=== PATIENT | male | born 1935 | race Caucasian/White ===

== ENCOUNTER 2021-04-15 13:15 | Inpatient (IN) ==
--- NOTE | 2021-04-15 13:35 | Emergency Department Note ---
Extremity Problem HPI General Chief complaint: Extremity Problem,Nontraumatic Stated complaint: bilateral feet swelling Time Seen by Provider: 04/15/21 13:21 Source: patient, family, RN notes reviewed and old records reviewed Mode of arrival: ambulatory Limitations: no limitations History of Present Illness HPI Narrative: Narrative: 85-year-old male complains of severe bilateral foot pain x1 day. Patient has a history of neuropathy and use ice bags and baths to diminish the pain in his feet so he can sleep. Patient feels he may have overdone it because his feet have now blisters erythema and increased swelling and pain. MD Complaint: extremity pain and extremity swelling Onset (ago): day(s) (1) Consistency: constant Location: left, right and lower extremity Quality: stabbing and aching Radiation: none Improves with: elevation Worsens with: walking Associated symptoms: Reports rash; Denies chest pain, shortness of breath, feve r, myalgias and arthralgias Context: other (Ice packs) Related Data Home Medications Medication Instructions Recorded Confirmed thyroid (pork) [[place] Thyroid] 60 mg PO DAILY 08/16/16 08/16/16 albuterol sulfate 90 mcg/actuation 2 puff INHALATION .COMPLEX PRN 08/24/17 08/24/17 aerosol inhaler cholecalciferol (vitamin D3) 125 See Rx Instructions PO .COMPLEX 08/24/17 08/24/17 mcg (5,000 unit) tablet desonide 0.05 % topical ointment 1 applic TOPICAL BID 08/24/17 08/24/17 diclofenac sodium 1 % topical gel See Rx Instructions TOPICAL QID PRN 08/24/17 08/24/17 ibuprofen 200 mg capsule 200 mg PO TID cap 08/24/17 08/24/17 krill oil PO 08/24/17 08/24/17 levofloxacin 500 mg tablet 500 mg PO QDAY tab 08/24/17 08/24/17 magnesium oxide See Rx Instructions PO ONCE tab 08/24/17 08/24/17 multivitamin 1 tab PO QDAY 08/24/17 08/24/17 omeprazole 20 mg capsule,delayed 20 mg PO QDAY 08/24/17 08/24/17 release sumatriptan succinate 100 mg tablet 100 mg PO ONCE 08/24/17 08/24/17 topiramate 25 mg tablet 25 mg PO QHS tab 08/24/17 08/24/17 visine pure tears See Rx Instructions OPHTHALMIC 08/24/17 08/24/17 .COMPLEX vit C-vit [id number] capsule cap PO 08/24/17 08/24/17 Previous Rx's Medication Instructions Recorded hydrocodone-acetaminophen 1 tab PO Q4HP PRN #15 tab 08/16/16 methocarbamol 500 mg PO BIDP PRN #20 tab 08/16/16 testosterone cypionate 200 mg/mL 100 mg IM QWEEK #10 ml 08/13/20 intramuscular oil Allergies Allergy/AdvReac Type Severity Reaction Status Date / Time dexlansoprazole Allergy Unknown Unknown Verified 04/15/21 13:18 [From Dexilant] morphine Allergy Unknown Unknown Verified 04/15/21 13:18 Penicillins Allergy Unknown Unknown Verified 04/15/21 13:18 Sulfa (Sulfonamide Allergy Unknown Unknown Verified 04/15/21 13:18 Antibiotics) Review of Systems ROS ROS Narrative: Narrative: All systems ED: reviewed and negative except as stated. PFS Narrative Patient History Narrative: Narrative: Medical/Surgical/Family History All Active Problems (Updated 04/15/21 @ 14:02 by Dayne Branch MD) Cellulitis (Acute) Neuropathy (Acute) Obstructive uropathy (Chronic) Nausea (Chronic) Post-operative pain (Chronic) Edema (Chronic) Obstruction of urinary tract (Chronic) Rash (Chronic) Hypogonadism (Chronic) Prostatitis (Chronic) Diarrhea (Chronic) Cramp of limb (Chronic) Thrombocytopenia (Chronic) Temperature intolerance (Chronic) Reactive airway disease (Chronic) Pain in right shoulder (Chronic) Neck pain (Chronic) LBBB (left bundle branch block) (Chronic) Insomnia (Chronic) Inability to attain erection (Chronic) Hypothyroidism (Chronic) Hyperlipidemia (Chronic) Migraine headache (Chronic) GERD (gastroesophageal reflux disease) (Chronic) Hypertension, essential (Chronic) Encounter for monitoring long-term proton pump inhibitor therapy (Chronic) Long-term use of high-risk medication (Chronic) Dry eye syndrome (Chronic) Dermatitis (Chronic) Cough (Chronic) Acute bronchitis (Chronic) Constipation (Chronic) Dependent edema (Chronic) Pedal edema (Chronic) Spinal stenosis (Chronic) Urinary retention (Chronic) Lumbar spinal stenosis (Chronic) Medical History Acute bronchitis Constipation Cough Cramp of limb Dependent edema Dermatitis Diarrhea Dry eye syndrome Edema Encounter for monitoring long-term proton pump inhibitor therapy GERD (gastroesophageal reflux disease) Hyperlipidemia Hypertension, essential Hypogonadism Hypothyroidism Inability to attain erection Insomnia LBBB (left bundle branch block) Long-term use of high-risk medication Lumbar spinal stenosis Migraine headache Nausea Neck pain Obstruction of urinary tract Obstructive uropathy Pain in right shoulder Pedal edema bilateral Post-operative pain Prostatitis Rash Reactive airway disease Spinal stenosis lumbar region Temperature intolerance Thrombocytopenia Urinary retention Surgical History History of cataract surgery History of surgery vertebrae surgery Family History Unknown Parkinson's disease Social History Smoking Status: Never smoker Alcohol Intake Frequency: does not drink Exam Narrative Narrative: Narrative: General Limitations: no limitations General appearance: Present alert and in no apparent distress Head Head: Present atraumatic, normocephalic and normal inspection Eye Eye: Present normal appearance, PERRL and EOMI; Absent scleral icterus and conjunctival injection ENT ENT: Present normal exam, normal oropharynx and mucous membranes moist Neck Neck: Present normal inspection, full ROM and trachea midline; Absent tenderness, lymphadenopathy and thyromegaly Chest Chest: Present normal inspection and symmetric chest wall rise; Absent tenderness Respiratory Respiratory: Present normal lung sounds bilaterally; Absent respiratory distress, wheezes, stridor, accessory muscle use and prolonged expiratory phase Cardiovascular Cardiovascular: Present regular rate, normal rhythm and systolic murmur; Absent diastolic murmur Adbominal Abdominal: Present soft; Absent distention, tenderness, guarding, rebound, rigidity, organomegaly and mass Extremities Extremities: Present tenderness, pedal edema and other (Second-degree sierra to the left foot and marked erythema swelling and tenderness to palpation of bilateral feet.); Absent normal inspection, full ROM, normal capillary refill, pretibial edema and calf tenderness Back Back: Present normal inspection; Absent CVA tenderness (R), CVA tenderness (L) and spinous process tenderness Neurological Neurological: Present alert, oriented X3 and motor sensory deficit; Absent normal gait Psychiatric Psychiatric: Present normal affect and normal mood Skin Skin: Present hot and erythema; Absent dry and normal color Course Vital Signs Vital signs: Vital Signs Temperature 97.3 F 04/15/21 13:16 Pulse Rate 73 04/15/21 13:16 Respiratory Rate 16 04/15/21 13:16 Blood Pressure 170/76 04/15/21 13:16 Pulse Oximetry (%) 99 04/15/21 13:16 Temperature 97.3 F 04/15/21 13:16 Pulse Rate 73 04/15/21 13:16 Respiratory Rate 16 04/15/21 13:16 Blood Pressure 170/76 04/15/21 13:16 Pulse Oximetry (%) 99 04/15/21 13:16 MDM MDM Narrative Medical decision making narrative: Narrative: 85-year-old male with cellulitis to bilateral lower extremities. It appears to be second-degree sierra from a cold. With marked erythema the patient was treated with IV antibiotics wounds were cleaned and dressed and they are elevated. Patient will need to be admitted for IV antibiotics and further observation of wounds. Dr. Fatima day of wound care evaluated patient patient will be admitted to the hospitalist. Differential Diagnosis Differential Diagnosis: Cellulitis, osteomyelitis, gangrenous necrosis, secondary sierra from cold. Medical Records Medical records reviewed: Yes I reviewed the patient's medical records. Lab Data Lab results reviewed: Yes I reviewed the patient's lab results. Radiology Data Radiology results reviewed: Yes I reviewed the patient's radiology results. Radiology results narrative: CT scans of bilateral lower extremities are positive for marked cellulitis no osteomyelitis Pulse Oximetry Data Pulse Ox %: 100 Interpretation: Pulse ox 100% on room air within normal limits Discharge Plan Patient/Caregiver Discharge Instructions Pt seen by WINDOWS SYSTEMS ADMINISTRATOR/PA only: No Clinical Impression: Neuropathy Cellulitis Qualifiers: Site of cellulitis: extremity Site of cellulitis of extremity: lower extremity Laterality: unspecified laterality Qualified Code(s): L03.119 - Cellulitis of unspecified part of limb Patient Disposition: Xfer As Inpt ([facility]) Condition: Fair Follow up with: Robin Gutierrez MD [Primary Care Provider] - Prescriptions: No Action testosterone cypionate [Depo-Testosterone] 200 mg/mL oil 100 mg IM QWEEK Qty: 10 RF: 1 desonide 0.05 % ointment 1 applic TOPICAL BID RF: 0 diclofenac sodium 1 % gel See Rx Instructions TOPICAL QID PRNRF: 0 ibuprofen 200 mg capsule 200 mg PO TID RF: 0 krill oil PO RF: 0 levofloxacin 500 mg tablet 500 mg PO QDAY RF: 0 magnesium oxide 250 mg tablet See Rx Instructions PO ONCE RF: 0 multivitamin tablet 1 tab PO QDAY RF: 0 vit C-vit P-sfnnfg-atvhskhj capsule PO RF: 0 omeprazole 20 mg capsule,delayed release(DR/EC) 20 mg PO QDAY RF: 0 albuterol sulfate [ProAir HFA] 90 mcg/actuation HFA aerosol inhaler 2 puff INHALATION .COMPLEX PRNRF: 0 sumatriptan succinate 100 mg tablet 100 mg PO ONCE RF: 0 topiramate [Topamax] 25 mg tablet 25 mg PO QHS RF: 0 visine pure tears See Rx Instructions OPHTHALMIC .COMPLEX RF: 0 cholecalciferol (vitamin D3) 5,000 unit tablet See Rx Instructions PO .COMPLEX RF: 0 thyroid (pork) [[place] Thyroid] 60 MG Tablet 60 mg PO DAILY RF: 0 methocarbamol 500 MG Tablet 500 mg PO BIDP PRN (Reason: Spasms) Qty: 20 RF: 15 hydrocodone-acetaminophen 1 TAB Tablet 1 tab PO Q4HP PRN (Reason: Pain) Qty: 15 RF: 0
[2021-04-15] MEDS ORDERED: VANCOMYCIN 1,500 MG in 0.9 % SODIUM CHLORIDE 500 ML IV ONE (13:52)
[2021-04-15] MEDS ORDERED: fentaNYL 100 MCG/2 ML VIAL IV ONE (13:52)
[2021-04-15] MEDS ORDERED: DIPH,PERTUSS(ACELL),TET VAC/PF 0.5 ML SYRINGE IM ONE (13:52)
[2021-04-15] MEDS ORDERED: diphenhydrAMINE 50 MG/ML VIAL IV ONE (13:52)
[2021-04-15] MEDS ORDERED: ONDANSETRON 4 MG/2 ML VIAL IV ONE ×2 (13:52→15:56)
[2021-04-15] MEDS ORDERED: cefTRIAXone 2 GM in DEXTROSE 5% IN WATER 50 ML IV ONE (13:52)
[2021-04-15 14:13] LABS: POC Creatinine 1.2 mg/dL (0.6-1.2)
[2021-04-15 14:59] LABS: INR 1.1 (0.9-1.1); Prothrombin Time 14.7 sec (11.9-14.5)
[2021-04-15 15:02] LABS: Basophils # (Auto) 0.04 K/mcL (0.00-0.20); Basophils % (Auto) 0.8 % (0.0-2.0); Eosinophils # (Auto) 0.06 K/mcL (0.00-0.70); Eosinophils % (Auto) 1.2 % (0.0-7.0); Hematocrit 47.5 % (41.0-55.0); Hemoglobin 16.3 g/dL (13.5-16.5); Lymphocytes % (Auto) 11.7 % (15.0-49.0); Mean Cell Volume 85.7 fL (80.0-100.0); Mean Corpuscular HGB Conc 34.3 g/dL (31.0-36.0); Mean Platelet Volume 10.6 fL (7.4-10.4); Monocytes # (Auto) 0.35 K/mcL (0.10-0.90); Monocytes % (Auto) 6.8 % (1.0-12.0); Neutrophils % (Auto) 79.5 % (38.0-78.0); Platelet Count 122 K/mcL (140-440); RBC 5.54 M/mcL (4.50-5.90); Red Cell Distribution Width 14.3 % (11.5-14.5); WBC 5.1 K/mcL (4.5-11.0)
--- NOTE | 2021-04-15 15:19 | Cat Scan Report ---
CLINICAL INFORMATION: Foot cellulitis COMPARISON: None. TECHNIQUE: 0.625 mm helical slices were obtained through the distal one third of the tibia fibula through the ankle and foot. Following reconstruction, 2.5 mm sagittal, coronal and axial reformatted images were processed and reviewed in bone and soft tissue windows.The exam was performed using radiation dose optimization techniques including, but not limited to, automated exposure control, adjustment of the mA and/or kV according to patient size and use of iterative reconstruction technique. FINDINGS: Mild hallux valgus and metatarsus abductus deformities noted. Ossific naviculare also noted. No CT evidence for osteomyelitis. Joint spaces are normal in width and alignment without arthritic change. There is marked inflammation in the subcutaneous fat throughout the foot and ankle compatible with cellulitis. No evidence of discrete abscess. IMPRESSION: Severe cellulitis throughout the foot and ankle. No discrete soft tissue abscess or evidence of osteomyelitis. Mild hallux valgus and metatarsus abductus. Interpreted and Authenticated by: Chris Maravilla 04/15/21
[2021-04-15 15:26] LABS: ALT/SGPT 30 U/L (<40); AST/SGOT 25 U/L (<40); Albumin 4.2 gm/dL (3.2-5.2); Albumin/Globulin Ratio 2.5 (1.0-2.3); Alkaline Phosphatase 58 U/L (39-117); Bilirubin,Total 0.7 mg/dL (0.1-1.0); Blood Urea Nitrogen 11 mg/dL (8-23); Calcium 8.8 mg/dL (8.6-10.4); Carbon Dioxide 25 mmol/L (22-30); Chloride 90 mmol/L (96-108); Globulin 1.7 gm/dL (2.2-3.7); Glomerular Filtration Rate 78; Glucose 120 mg/dL (70-105)
--- NOTE | 2021-04-15 15:28 | Cat Scan Report ---
CLINICAL INFORMATION: Foot cellulitis COMPARISON: None. TECHNIQUE: 0.625 mm helical slices were obtained through the distal one third of the tibia fibula through the ankle and foot. Following reconstruction, 2.5 mm sagittal, coronal and axial reformatted images were processed and reviewed in bone and soft tissue windows.The exam was performed using radiation dose optimization techniques including, but not limited to, automated exposure control, adjustment of the mA and/or kV according to patient size and use of iterative reconstruction technique. FINDINGS: Mild hallux valgus and metatarsus abductus deformities noted. Ossific naviculare also noted. No CT evidence for osteomyelitis. Mild degeneration ankle mortise noted. Few small loose bodies present the ankle mortise. 1Joint spaces are normal in width and alignment without arthritic change. There is marked inflammation in the subcutaneous fat throughout the foot and ankle compatible with cellulitis. No evidence of discrete abscess. IMPRESSION: Severe cellulitis throughout the foot and ankle. No discrete soft tissue abscess or evidence of osteomyelitis. Mild hallux valgus, metatarsus abductus and hammertoe deformities second through fifth digits. Interpreted and Authenticated by: Chris Maravilla 04/15/21
[2021-04-15] MEDS ORDERED: FUROSEMIDE 20 MG/2 ML VIAL IV ONE (15:50)
[2021-04-15 15:51] LABS: Estimated Average Glucose(eAG) 103 mg/dL; Hemoglobin A1C 5.2 % Hgb (4.0-6.0)
[2021-04-15] MEDS ORDERED: fentaNYL 100 MCG/2 ML VIAL IV PRN (15:56)
[2021-04-15] MEDS ORDERED: LORazepam 2 MG/ML VIAL IV ONE (16:05)
[2021-04-15 16:19] LABS: Appearance,Urine CLEAR (Clear); Bilirubin,Urine Negative (Negative); Color,Urine STRAW; Culture Indicated,Urine No; Glucose,Urine (UA) Negative (Negative); Ketones,Urine Negative (Negative); Leukocyte Esterase,Urine Negative /ug (Negative); Nitrate,Urine Negative (Negative); Protein,Urine Negative (Negative); Specific Gravity,Urine 1.004 (1.000-1.035); Urine Blood Negative (Negative); Urobilinogen,Urine Negative
--- NOTE | 2021-04-15 19:20 | Internal Med History&Physical ---
HPI History of Present Illness Patient information: Note initiated : 04/15/21 at 7:13 pm Service Date, if different from initiated Date: [] Patient: Carlotta Fletcher 85 y/o M admitted on 04/15/21 for bilateral feet swelling. Chief Complaint: [] History of present illness: Mr. Fletcher is a 85 year old male with a history of extremity neuropathy, hypothyroidism, migraine headaches resents to the ED for lower extremity pain and redness that occurred after applying ice packs on both his lower extremities for neuropathy. Patient was found to have bilateral lower extremity frostbite, likely second-degree. Received some antibiotics in the ED, wound care was admitted for subsequent management. Further work-up in the ED showed the patient to be hyponatremic. Patient has been afebrile, has no leukocytosis. Procalcitonin was checked and normal. Discussed the case with condition Kamilla at the bedside, agreed to monitor off antibiotics. Will proceed with wound care for frostbite, pain control and monitoring improvement. Review of systems Constitutional: no fever, fatigue, or weight loss Eyes: no vision changes or pain Cardiovascular: no chest pain, no palpitations Respiratory: no cough or dyspnea Gastrointestinal: no abdominal pain, no nausea, vomiting, or diarrhea Genitourinary: no dysuria or difficulty voiding Musculoskeletal: Bilateral lower extremity pain frostbite, chronic back and neck pain Integumentary: Bilateral ankle and foot redness Neurological: Bilateral lower extremity neuropathy Psychiatric: no anxiety or depression Physical exam Head: Atraumatic, normal inspection. Eyes: normal appearance, no scleral icterus. Neck: full ROM Respiratory: no respiratory distress. Cardiovascular: normal rate and rhythm, S1, S2. GI/Abdominal: soft, nontender, no guarding. Extremities: full range of motion, nontender. Neurological: CN II-XII intact, intact motor, intact sensation to toes in bilateral lower extremities. Psychiatric: normal mood. Skin: Bilateral lower extremities covered in clean bandage, visible toes are reddened but appear well-perfused PFSH PFSH All Active Problems (Updated 04/15/21 @ 14:02 by Dayne Branch MD) Cellulitis (Acute) Neuropathy (Acute) Obstructive uropathy (Chronic) Nausea (Chronic) Post-operative pain (Chronic) Edema (Chronic) Obstruction of urinary tract (Chronic) Rash (Chronic) Hypogonadism (Chronic) Prostatitis (Chronic) Diarrhea (Chronic) Cramp of limb (Chronic) Thrombocytopenia (Chronic) Temperature intolerance (Chronic) Reactive airway disease (Chronic) Pain in right shoulder (Chronic) Neck pain (Chronic) LBBB (left bundle branch block) (Chronic) Insomnia (Chronic) Inability to attain erection (Chronic) Hypothyroidism (Chronic) Hyperlipidemia (Chronic) Migraine headache (Chronic) GERD (gastroesophageal reflux disease) (Chronic) Hypertension, essential (Chronic) Encounter for monitoring long-term proton pump inhibitor therapy (Chronic) Long-term use of high-risk medication (Chronic) Dry eye syndrome (Chronic) Dermatitis (Chronic) Cough (Chronic) Acute bronchitis (Chronic) Constipation (Chronic) Dependent edema (Chronic) Pedal edema (Chronic) Spinal stenosis (Chronic) Urinary retention (Chronic) Lumbar spinal stenosis (Chronic) Medical History Acute bronchitis Constipation Cough Cramp of limb Dependent edema Dermatitis Diarrhea Dry eye syndrome Edema Encounter for monitoring long-term proton pump inhibitor therapy GERD (gastroesophageal reflux disease) Hyperlipidemia Hypertension, essential Hypogonadism Hypothyroidism Inability to attain erection Insomnia LBBB (left bundle branch block) Long-term use of high-risk medication Lumbar spinal stenosis Migraine headache Nausea Neck pain Obstruction of urinary tract Obstructive uropathy Pain in right shoulder Pedal edema bilateral Post-operative pain Prostatitis Rash Reactive airway disease Spinal stenosis lumbar region Temperature intolerance Thrombocytopenia Urinary retention Surgical History History of cataract surgery History of surgery vertebrae surgery Family History Unknown Parkinson's disease Social History (Updated 08/24/17 @ 15:23 by Yokasta Toney) marital status: frequency: daily alcohol intake frequency: does not drink MEDS/ALLERGIES Home Medications and Allergies Home Medications Medication Instructions Recorded Confirmed Type thyroid (pork) [[place] Thyroid] 60 mg PO DAILY 08/16/16 04/15/21 History desonide 0.05 % topical ointment 1 applic TOPICAL BID 08/24/17 04/15/21 History sumatriptan succinate 100 mg tablet 100 mg PO PRN PRN 08/24/17 04/15/21 History testosterone cypionate 200 mg/mL 100 mg IM QWEEK #10 ml 08/13/20 04/15/21 Rx intramuscular oil colestipol 2 g PO QDAY 04/15/21 04/15/21 History gabapentin 100 mg PO QDAY 04/15/21 04/15/21 History Allergies Allergy/AdvReac Type Severity Reaction Status Date / Time dexlansoprazole Allergy Unknown Unknown Verified 04/15/21 13:18 [From Dexilant] morphine Allergy Unknown Unknown Verified 04/15/21 13:18 Penicillins Allergy Unknown Unknown Verified 04/15/21 13:18 Sulfa (Sulfonamide Allergy Unknown Unknown Verified 04/15/21 13:18 Antibiotics) EXAM Constitutional Vitals: Temp Pulse Resp BP Pulse Ox 97.3 F 68 16 104/51 96 04/15/21 13:16 04/15/21 17:31 04/15/21 13:16 04/15/21 17:31 04/15/21 17:31 DATA Data Completed and Pending Labs: Labs from last 24 hours 04/15/21 04/15/21 04/15/21 15:15 14:07 14:06 WBC 5.1 RBC 5.54 Hgb 16.3 Hct 47.5 MCV 85.7 MCH 29.4 MCHC 34.3 RDW 14.3 Plt Count 122 L MPV 10.6 H Neut % (Auto) 79.5 H Lymph % (Auto) 11.7 L Jackson % (Auto) 6.8 Eos % (Auto) 1.2 Baso % (Auto) 0.8 Lymph # (Auto) 0.60 L Jackson # (Auto) 0.35 Eos # (Auto) 0.06 Baso # (Auto) 0.04 Absolute Neutrophils 4.06 PT INR Sodium Potassium Chloride Carbon Dioxide Anion Gap BUN Creatinine POC Creatinine GFR Calculation Glucose Hemoglobin A1c Estim Average Glucose Calcium Total Bilirubin AST ALT Alkaline Phosphatase C-Reactive Protein Total Protein Albumin Globulin Albumin/Globulin Ratio Procalcitonin 0.06 Urine Color Straw Urine Appearance Clear Urine pH 7.0 Ur Specific Hope 1.004 Urine Protein Negative Urine Glucose (UA) Negative Urine Ketones Negative Urine Occult Blood Negative Urine Nitrate Negative Urine Bilirubin Negative Urine Urobilinogen Negative Ur Leukocyte Esterase Negative Ur Culture Indicated? No 04/15/21 04/15/21 14:06 14:06 WBC RBC Hgb Hct MCV MCH MCHC RDW Plt Count MPV Neut % (Auto) Lymph % (Auto) Jackson % (Auto) Eos % (Auto) Baso % (Auto) Lymph # (Auto) Jackson # (Auto) Eos # (Auto) Baso # (Auto) Absolute Neutrophils PT 14.7 H INR 1.1 Sodium 126 L Potassium 4.1 Chloride 90 L Carbon Dioxide 25 Anion Gap 11.0 BUN 11 Creatinine 0.9 POC Creatinine 1.2 GFR Calculation 78 Glucose 120 H Hemoglobin A1c 5.2 Estim Average Glucose 103 Calcium 8.8 Total Bilirubin 0.7 AST 25 ALT 30 Alkaline Phosphatase 58 C-Reactive Protein 0.10 Total Protein 5.9 Albumin 4.2 Globulin 1.7 L Albumin/Globulin Ratio 2.5 H Procalcitonin Urine Color Urine Appearance Urine pH Ur Specific Hope Urine Protein Urine Glucose (UA) Urine Ketones Urine Occult Blood Urine Nitrate Urine Bilirubin Urine Urobilinogen Ur Leukocyte Esterase Ur Culture Indicated? A/P Narrative A/P Narrative: Assessment: 85 year old male with a history of extremity neuropathy, hypothyroidism, migraine headaches admitted for bilateral lower extremity frostbite that occurred after applying ice packs on both his lower extremities for neuropathic pain. #Frostbite of bilateral lower extremities #Moderate hyponatremia, euvolemic and asymptomatic #Thrombocytopenia #Bilateral lower extremity neuropathy #Hypothyroidism #History of migraine headaches Plan -Wound care, analgesics as needed, follow frostbite progression. -Increase gabapentin to 300 mg twice daily. -Check TSH for poorly controlled neuropathy. -Follow sodium in AM, IV fluid and workup if no improvement. -Sumatriptan as needed for migraine. -Continue home [place] thyroid. -Dr. Farris consulted. -Regular diet. -DVT PPx: Lovenox SQ -CODE STATUS: Full -Disposition: Home Time Spent With Patient Time: Total time spent is greater than 50% in coordination of care (as documented) at patient's floor/unit and/or counseling patient:
[2021-04-15] MEDS ORDERED: HYDROmorphone 0.5 MG/0.5 ML SYRINGE IV PRN (19:23)
[2021-04-15] MEDS ORDERED: KETOROLAC 15 MG/ML VIAL IV PRN (19:23)
[2021-04-15] MEDS ORDERED: ONDANSETRON 4 MG/2 ML VIAL IV PRN (19:23)
[2021-04-15] MEDS ORDERED: SUMAtriptan SUCCINATE 50 MG TABLET PO PRN (19:32)
--- NOTE | 2021-04-15 19:36 | General Surgery Consult Note ---
HPI Data of Consult Consult date: 04/15/21 Requesting physician: Dayne Branch Primary Care Provider: Robin Gutierrez Consult Narrative Patient Information: Note initiated : 04/15/21 at 7:18 pm Service Date, if different from initiated Date: [] Patient: Carlotta Fletcher 85 y/o M admitted on 04/15/21 for bilateral feet swelling. Chief Complaint: I saw this patient in ER in the presence of his family and discussed his presentation and management plan with ER Physician Dr. Carranza. Reviewed history and examined patient. SUBSEQUENTLY I saw him on Med Surg Floor along with Dr. Buenrostro, Hospitalist Physician. Have reviewed lab results and CT Scan reports and pictures. Chief complaint: PAIN both feet, with Cellulits CSSSI both feet / blisters dorsal left foot Reason for consult: Wound / Skin care cc:: CC: Mando Buenrostro MD Constitutional Additional comments: Was in usual state of health until one day ago. He experienced an exacerbation of his neuropathic pain and burning involving both feet and ankles. He tried to treat this with ice packs. This did NOT help and over a period of time, he developed soft tissue edema, erythema and throbbing pain of both feet and blisters over LEFT dorsal foot. He is able to move toes and ankles. He has h/o Lumbar spinal stenosis and spinal surgery in past. He had similar episode over 3 years ago. Treated conservatively. He DENIES any urinary or bowel symptoms. PFSH PFSH All Active Problems Cellulitis (Acute) Neuropathy (Acute) Obstructive uropathy (Chronic) Nausea (Chronic) Post-operative pain (Chronic) Edema (Chronic) Obstruction of urinary tract (Chronic) Rash (Chronic) Hypogonadism (Chronic) Prostatitis (Chronic) Diarrhea (Chronic) Cramp of limb (Chronic) Thrombocytopenia (Chronic) Temperature intolerance (Chronic) Reactive airway disease (Chronic) Pain in right shoulder (Chronic) Neck pain (Chronic) LBBB (left bundle branch block) (Chronic) Insomnia (Chronic) Inability to attain erection (Chronic) Hypothyroidism (Chronic) Hyperlipidemia (Chronic) Migraine headache (Chronic) GERD (gastroesophageal reflux disease) (Chronic) Hypertension, essential (Chronic) Encounter for monitoring long-term proton pump inhibitor therapy (Chronic) Long-term use of high-risk medication (Chronic) Dry eye syndrome (Chronic) Dermatitis (Chronic) Cough (Chronic) Acute bronchitis (Chronic) Constipation (Chronic) Dependent edema (Chronic) Pedal edema (Chronic) Spinal stenosis (Chronic) Urinary retention (Chronic) Lumbar spinal stenosis (Chronic) Medical History Acute bronchitis Constipation Cough Cramp of limb Dependent edema Dermatitis Diarrhea Dry eye syndrome Edema Encounter for monitoring long-term proton pump inhibitor therapy GERD (gastroesophageal reflux disease) Hyperlipidemia Hypertension, essential Hypogonadism Hypothyroidism Inability to attain erection Insomnia LBBB (left bundle branch block) Long-term use of high-risk medication Lumbar spinal stenosis Migraine headache Nausea Neck pain Obstruction of urinary tract Obstructive uropathy Pain in right shoulder Pedal edema bilateral Post-operative pain Prostatitis Rash Reactive airway disease Spinal stenosis lumbar region Temperature intolerance Thrombocytopenia Urinary retention Surgical History History of cataract surgery History of surgery vertebrae surgery Family History Unknown Parkinson's disease Social History marital status: frequency: daily alcohol intake frequency: does not drink MEDS/ALLERGIES Home Medications and Allergies Home Medications Medication Instructions Recorded Confirmed Type thyroid (pork) [[place] Thyroid] 60 mg PO DAILY 08/16/16 04/15/21 History desonide 0.05 % topical ointment 1 applic TOPICAL 3XW 08/24/17 04/15/21 History sumatriptan succinate 100 mg tablet 100 mg PO PRN PRN 08/24/17 04/15/21 History testosterone cypionate 200 mg/mL 100 mg IM QWEEK #10 ml 08/13/20 04/15/21 Rx intramuscular oil carboxymethylcellulose sodium 2 drp OPHTHALMIC (EYE) BID PRN 04/15/21 04/15/21 History [Artificial Tears (cmc)] colestipol 2 g PO QDAY 04/15/21 04/15/21 History gabapentin 200 mg PO QDAY 04/15/21 04/15/21 History lisinopril 2.5 mg PO QAM 04/15/21 04/15/21 History omeprazole [Prilosec] 40 mg PO QDAY 04/15/21 04/15/21 History psyllium husk [Metamucil] 1 tbsp PO BID 04/15/21 04/15/21 History Total Restore Supplement 3 cap PO DAILY 04/16/21 04/16/21 History Allergies Allergy/AdvReac Type Severity Reaction Status Date / Time dexlansoprazole Allergy Unknown Unknown Verified 04/15/21 13:18 [From Dexilant] morphine Allergy Unknown Unknown Verified 04/15/21 13:18 Penicillins Allergy Unknown Unknown Verified 04/15/21 13:18 Sulfa (Sulfonamide Allergy Unknown Unknown Verified 04/15/21 13:18 Antibiotics) Physical Examination Vital Signs Vital signs: Temp Pulse Resp BP Pulse Ox 97.3 F 68 16 104/51 96 04/15/21 13:16 04/15/21 17:31 04/15/21 13:16 04/15/21 17:31 04/15/21 17:31 General physical appearance General physical exam: well developed, well nourished, moderate distress and moderate pain (Clinically looking better and toes of both feet are now pink, warm, dry with intact movements. ) Eyes Eye exam: PERRL and normal ocular movement ENT ENT exam: normal pinna, normal mucosa and no congestion Head Head exam IM: Present atraumatic and normocephalic Neck Neck exam: no masses, trachea midline and no venous distension Cardiovascular Cardiovascular exam IM: Present normal rate and rhythm Respiratory Respiratory exam: normal expansion, normal respiratory effort and clear to aus cultation Abdomen Abdomen: Present soft, non tender and bowel sounds Integumentary Integumentary: Present other (Cellulitis both feet extending to ankles. Clear fluid filled blisters Left dorsal foot. Pedal pulses NOT palpated due to edema. BUT he has intact movements of feet and ankle.) Neurologic Neurologic: Present other (NON focal gross neurological examination. Moves both feet, ankles, knees and hips. ) Musculoskeletal Musculoskeletal: Present other (Did NOT examine him standing or walking. ) Psychiatric Psychiatric: Present oriented to time, oriented to person, oriented to place, speech is normal and memory intact Results Labs Result diagrams: 04/16/21 05:23 04/16/21 05:23 Labs: Abnormal lab results 04/15/21 04/15/21 04/15/21 Range/Units 14:06 14:06 14:07 Plt Count 122 L (140-440) K/mcL MPV 10.6 H (7.4-10.4) fL Neut % (Auto) 79.5 H (38.0-78.0) % Lymph % (Auto) 11.7 L (15.0-49.0) % Lymph # (Auto) 0.60 L (1.50-4.80) K/mcL PT 14.7 H (11.9-14.5) sec Sodium 126 L (133-145) mmol/L Chloride 90 L (96-108) mmol/L Glucose 120 H (70-105) mg/dL Globulin 1.7 L (2.2-3.7) gm/dL Albumin/Globulin Ratio 2.5 H (1.0-2.3) Diabetes panel 04/15/21 Range/Units 14:06 Sodium 126 L (133-145) mmol/L Potassium 4.1 (3.3-5.1) mmol/L Chloride 90 L (96-108) mmol/L Carbon Dioxide 25 (22-30) mmol/L BUN 11 (8-23) mg/dL Creatinine 0.9 (0.7-1.2) mg/dL Glucose 120 H (70-105) mg/dL Hemoglobin A1c 5.2 (4.0-6.0) % Hgb Calcium 8.8 (8.6-10.4) mg/dL AST 25 (<40) U/L ALT 30 (<40) U/L Alkaline Phosphatase 58 (39-117) U/L Total Protein 5.9 (5.9-8.4) gm/dL Albumin 4.2 (3.2-5.2) gm/dL Calcium panel 04/15/21 Range/Units 14:06 Calcium 8.8 (8.6-10.4) mg/dL Albumin 4.2 (3.2-5.2) gm/dL Pituitary panel 04/15/21 Range/Units 14:06 Sodium 126 L (133-145) mmol/L Potassium 4.1 (3.3-5.1) mmol/L Chloride 90 L (96-108) mmol/L Carbon Dioxide 25 (22-30) mmol/L BUN 11 (8-23) mg/dL Creatinine 0.9 (0.7-1.2) mg/dL Glucose 120 H (70-105) mg/dL Calcium 8.8 (8.6-10.4) mg/dL Adrenal panel 04/15/21 Range/Units 14:06 Sodium 126 L (133-145) mmol/L Potassium 4.1 (3.3-5.1) mmol/L Chloride 90 L (96-108) mmol/L Carbon Dioxide 25 (22-30) mmol/L BUN 11 (8-23) mg/dL Creatinine 0.9 (0.7-1.2) mg/dL Glucose 120 H (70-105) mg/dL Calcium 8.8 (8.6-10.4) mg/dL Total Bilirubin 0.7 (0.1-1.0) mg/dL AST 25 (<40) U/L ALT 30 (<40) U/L Alkaline Phosphatase 58 (39-117) U/L Total Protein 5.9 (5.9-8.4) gm/dL Albumin 4.2 (3.2-5.2) gm/dL All other labs normal. A/P Narrative A/P Narrative: Assessment: Thermal injury / trauma both feet. Cellulitis with blistering of LEFT foot skin. CT scan negative for osteomyelitis. Extensive soft tissue edema. NO free gas . Plan: Rest, elevation and compression dressings. HEEL weight bearing to go to bath room. Pain and other medication management per hospitalist physician. Will take down dressings and review again in AM. Time Spent With Patient Time: Total time spent is greater than 50% in coordination of care (as documented) at patient's floor/unit and/or counseling patient: Total time spent with greater than 50% in coordination of care (as documented) at patient's floor/unit and/or counseling patient:: 25 - 35 minutes
[2021-04-15] MEDS ORDERED: traZODone HCL 50 MG TABLET PO PRN (20:34)
[2021-04-15] MEDS ORDERED: traZODone HCL 50 MG TABLET ONE (20:45)
[2021-04-15] MEDS: GABAPENTIN 300 MG CAPSULE PO SCH (20:46)
[2021-04-15] MEDS: 0.9 % SODIUM CHLORIDE 10 ML SYRINGE IV SCH (20:46)
[2021-04-15] MEDS: DOCUSATE SODIUM 100 MG CAPSULE PO SCH (20:46)
[2021-04-15] MEDS ORDERED: SENNOSIDES 1 TABLET PO SCH (21:00)
[2021-04-16] MEDS: 0.9 % SODIUM CHLORIDE 10 ML SYRINGE IV SCH (05:43)
[2021-04-16 07:29] LABS: Basophils # (Auto) 0.05 K/mcL (0.00-0.20); Eosinophils # (Auto) 0.04 K/mcL (0.00-0.70); Eosinophils % (Auto) 0.8 % (0.0-7.0); Hematocrit 47.7 % (41.0-55.0); Lymphocytes % (Auto) 12.5 % (15.0-49.0); Mean Cell Volume 87.2 fL (80.0-100.0); Mean Corpuscular HGB Conc 33.5 g/dL (31.0-36.0); Mean Platelet Volume 10.6 fL (7.4-10.4); Monocytes # (Auto) 0.38 K/mcL (0.10-0.90); Monocytes % (Auto) 7.9 % (1.0-12.0); Neutrophils % (Auto) 77.8 % (38.0-78.0); Platelet Count 115 K/mcL (140-440); RBC 5.47 M/mcL (4.50-5.90); Red Cell Distribution Width 14.5 % (11.5-14.5); WBC 4.8 K/mcL (4.5-11.0)
--- NOTE | 2021-04-16 07:29 | Internal Med Progress Note ---
SUBJECTIVE Subjective Patient information: Note initiated : 04/16/21 at 7:26 am Service Date, if different from initiated Date: [] Patient: Carlotta Fletcher 85 y/o M admitted on 04/15/21 for bilateral feet swelling. Chief Complaint: [] Interval history: Mr. Fletcher is a 85 year old male with a history of extremity neuropathy, hypothyroidism, migraine headaches resents to the ED for lower extremity pain and redness that occurred after applying ice packs on both his lower extremities for neuropathy. Patient was found to have bilateral lower ex tremity frostbite, likely second-degree. Received some antibiotics in the ED, wound care was admitted for subsequent management. Further work-up in the ED showed the patient to be hyponatremic. Patient has been afebrile, has no leukocytosis. Procalcitonin was checked and normal. Discussed the case with condition Kamilla at the bedside, agreed to monitor off antibiotics. Will proceed with wound care for frostbite, pain control and monitoring improvement. 04/16 Resting comfortably this morning. Awaiting morning labs. Physical exam Head: Atraumatic, normal inspection. Eyes: normal appearance, no scleral icterus. Neck: full ROM Respiratory: no respiratory distress. Cardiovascular: normal rate and rhythm, S1, S2. GI/Abdominal: soft, nontender, no guarding. Extremities: full range of motion, nontender. Neurological: CN II-XII intact, intact motor, intact sensation to toes in bilateral lower extremities. Psychiatric: normal mood. Skin: Bilateral lower extremities covered in clean bandage, visible toes are reddened but appear well-perfused Constitutional Vitals: Vital Signs Temp Pulse Resp BP Pulse Ox 97.7 F 66 16 107/70 95 04/16/21 03:37 04/16/21 03:37 04/16/21 03:37 04/16/21 03:37 04/16/21 03:37 Period Temp Pulse Resp BP Sys/[place] Pulse Ox Last 24 Hr 97.3 F-97.8 F 65-73 16-16 104-170/43-94 94-100 Intake and Output 04/15/21 04/16/21 04/16/21 21:59 05:59 13:59 Intake Total 550 900 Output Total 1000 Balance -450 900 Weight 93.304 kg Intake & Output: Intake & Output 04/15/21 04/16/21 04/16/21 21:59 05:59 13:59 Intake Total 550 900 Output Total 1000 Balance -450 900 Weight 93.304 kg Intake: IV 550 Vancomycin 1,500 mg In Sodium 500 Chloride 0.9% 500 ml @ 333.3 mls/hr IV ONCE ONE Rx#: [id number] Rocephin 2 gm In Dextrose 5% in 50 Water 50 ml @ 100 mls/hr IV ONCE ONE Rx#:[id number] Oral 900 Output: Void Amount 1000 Other: Urine Appearance Clear Urine Color Bright Yellow # Voids 1 1 OBJ DATA Labs CBC & Chem 7: 04/15/21 14:07 04/15/21 14:06 Labs: Abnormal Lab Results 04/15/21 04/15/21 04/15/21 14:07 14:06 14:06 Plt Count 122 L MPV 10.6 H Neut % (Auto) 79.5 H Lymph % (Auto) 11.7 L Lymph # (Auto) 0.60 L PT 14.7 H Sodium 126 L Chloride 90 L Glucose 120 H Globulin 1.7 L Albumin/Globulin Ratio 2.5 H Meds: Medications Colestipol HCl (Colestipoll 1 Gm Tablet) 2 gm PO QDAY [facility] Docusate Sodium (Docusate Sodium 100 Mg Capsule) 100 mg PO BID [facility] Last Admin: 04/15/21 20:46 Dose: 100 mg Documented by: Enoxaparin Sodium (Enoxaparin 40 Mg/0.4 Ml Syringe) 40 mg SQ DAILY [facility] Gabapentin (Gabapentin 300 Mg Capsule) 300 mg PO BID [facility] Last Admin: 04/15/21 20:46 Dose: 300 mg Documented by: Hydromorphone HCl (Hydromorphone 0.5 Mg/0.5 Ml Syringe) 0.5 mg IV Q2HP PRN; Protocol PRN Reason: Per Pain Protocol Ketorolac Tromethamine (Ketorolac 15 Mg/Ml Vial) 15 mg IV Q6HP PRN PRN Reason: Per Pain Protocol Stop: 04/17/21 19:05 Ondansetron HCl (Ondansetron 4 Mg/2 Ml Vial) 4 mg IV Q6HP PRN PRN Reason: Nausea And Vomiting Senna (Sennosides 1 Tablet) [address] [facility] Last Admin: 04/15/21 20:45 Dose: 2 tab Documented by: Sodium Chloride (0.9 % Sodium Chloride 10 Ml Syringe) 10 ml IV Q8 [facility] Last Admin: 04/16/21 05:43 Dose: 10 ml Documented by: Sumatriptan Succinate (Sumatriptan Succinate 50 Mg Tablet) 100 mg PO PRN PRN PRN Reason: Headache Last Admin: 04/16/21 05:58 Dose: 100 mg Documented by: Thyroid (Thyroid, Pork 60 Mg Tablet) 60 mg PO QAMAC [facility] Last Admin: 04/16/21 07:25 Dose: 60 mg Documented by: Trazodone HCl (Trazodone Hcl 50 Mg Tablet) 50 mg PO HSP PRN PRN Reason: Insomnia Last Admin: 04/15/21 20:46 Dose: 50 mg Documented by: A/P Narrative A/P Narrative: Assessment: 85 year old male with a history of extremity neuropathy, hypothyroidism, migraine headaches admitted for bilateral lower extremity frostbite that occurred after applying ice packs on both his lower extremities for neuropathic pain. #Frostbite of bilateral lower extremities #Moderate hyponatremia, euvolemic and asymptomatic #Thrombocytopenia #Bilateral lower extremity neuropathy #Hypothyroidism #History of migraine headaches Plan -Wound care, analgesics as needed. -Gabapentin 300 mg twice daily, previously 100 mg daily. -Follow AM TSH for poorly controlled neuropathy. -Follow sodium in AM, IV fluid and workup if no improvement. -Sumatriptan as needed for migraine. -Continue home [facility] thyroid. -Dr. Farris consulted. -Regular diet. -DVT PPx: Lovenox SQ -CODE STATUS: Full -Disposition: Home Time Spent With Patient Time: Total time spent is greater than 50% in coordination of care (as documented) at patient's floor/unit and/or counseling patient: QUALITY VTE Deep Vein Thrombosis/Pulmonary Embolism Present on Admission: No
[2021-04-16] MEDS ORDERED: THYROID, PORK 60 MG TABLET PO SCH (07:30)
[2021-04-16 07:47] LABS: Blood Urea Nitrogen 11 mg/dL (8-23); Calcium 8.5 mg/dL (8.6-10.4); Carbon Dioxide 27 mmol/L (22-30); Chloride 94 mmol/L (96-108); Glomerular Filtration Rate 78; Glucose 91 mg/dL (70-105)
[2021-04-16] MEDS: GABAPENTIN 300 MG CAPSULE PO SCH (08:34)
[2021-04-16] MEDS: DOCUSATE SODIUM 100 MG CAPSULE PO SCH (08:34)
[2021-04-16] MEDS ORDERED: ENOXAPARIN 40 MG/0.4 ML SYRINGE SQ SCH (09:00)
[2021-04-16] MEDS ORDERED: COLESTIPOLL 1 GM TABLET PO SCH (09:00)
--- NOTE | 2021-04-16 09:54 | General Surgery Progress Note ---
SUBJECTIVE Subjective Patient information: Note initiated : 04/16/21 at 9:45 am Service Date, if different from initiated Date: [] Patient: Carlotta Fletcher 85 y/o M admitted on 04/15/21 for bilateral feet swelling. 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 Dressings down. Patient had an uneventful night. Wounds are looking better. Constitutional Vitals: Vital Signs Temp Pulse Resp BP Pulse Ox 97.7 F 66 20 141/76 96 04/16/21 07:27 04/16/21 07:27 04/16/21 07:27 04/16/21 07:27 04/16/21 07:27 Period Temp Pulse Resp BP Sys/[place] Pulse Ox Last 24 Hr 97.3 F-97.8 F 65-73 16-20 104-170/43-94 94-100 Intake and Output 04/15/21 04/16/21 04/16/21 21:59 05:59 13:59 Intake Total 550 900 Output Total 1000 Balance -450 900 Weight 205 lb 11.2 oz Intake & Output: Intake & Output 04/15/21 04/16/21 04/16/21 21:59 05:59 13:59 Intake Total 550 900 Output Total 1000 Balance -450 900 Weight 205 lb 11.2 oz Intake: IV 550 Vancomycin 1,500 mg In Sodium 500 Chloride 0.9% 500 ml @ 333.3 mls/hr IV ONCE ONE Rx#: [id number] Rocephin 2 gm In Dextrose 5% in 50 Water 50 ml @ 100 mls/hr IV ONCE ONE Rx#:[id number] Oral 900 Output: Void Amount 1000 Other: Urine Appearance Clear Urine Color Bright Yellow # Voids 1 1 General appearance: cooperative and no acute distress Exam: AVSS. No changes BRADLY. L/E: Resolved edema of foot and toes. Blisters drained clear fluid. NO odor. Toes are PWD. Full ROM Labs: Normal WBC and Creatinine. Sodium 129 Rest of labs are unremarkable. A/P Narrative A/P Narrative: Assessment: ?? Autonomic neuropathy. Improvement with conservative measures. Plan: Clean with Hibiclens. Air dry, Silvadene creme to skin with sierra, Cover with dry gauze / Comperm ONCE a day. Elevate feet and legs when sitting or lying down. Weight bearing / Ambulate as tolerated. May D/C IV antibiotics. O K to D/C from wound care point of view F/U at wound care center in ONE week. Refer to Dr. Alston for trimming toe nails as out patient. Time Spent With Patient Time: Total time spent is greater than 50% in coordination of care (as documented) at patient's floor/unit and/or counseling patient: Total time spent with greater than 50% in coordination of care (as documented) at patient's floor/unit and/or counseling patient:: 25 - 35 minutes
[2021-04-16] MEDS ORDERED: SILVER SULFADIAZINE CREAM.TOP 25GM TOPICAL SCH (10:00)
--- NOTE | 2021-04-16 10:55 | Discharge Summary ---
Discharge Provider Provider Patient information: Note initiated : 04/16/21 at 10:54 am Service Date, if different from initiated Date: [] Patient: Carlotta Fletcher 85 y/o M admitted on 04/15/21 for bilateral feet swelling. Chief Complaint: [] Date of admission: 04/15/21 18:10 Discharge date: 04/16/21 Primary care physician: Robin Gutierrez Consults: 04/15/21 Consult to Physician [CONS] Stat Comment: Consulting Provider: Shawn Charles Reason For Exam: Physician to Consult Consult to Physician [CONS] Stat Comment: BLE Cellulitis Consulting Provider: Mando Buenrostro Reason For Exam: Physician to Consult Discharge Meds Discharge Medications Home Medications thyroid (pork) [[place] Thyroid] 60 mg PO DAILY 08/16/16 [History Confirmed 04/15/21 Last Taken 04/15/21 08:00] desonide 0.05 % topical ointment 1 applic TOPICAL 3XW 08/24/17 [History Confirmed 04/15/21 Last Taken 04/15/21 08:00] sumatriptan succinate 100 mg tablet 100 mg PO PRN PRN 08/24/17 [History Confirmed 04/15/21 Last Taken 04/12/21] testosterone cypionate 200 mg/mL intramuscular oil 100 mg IM QWEEK #10 ml 08/13/20 [Rx Confirmed 04/15/21 Last Taken 04/14/21] Artificial Tears (cmc) 2 drp OPHTHALMIC (EYE) BID PRN 04/15/21 [History Confirme d 04/15/21 Last Taken 04/15/21] Metamucil 1 tbsp PO BID 04/15/21 [History Confirmed 04/15/21 Last Taken 04/14/21] colestipol 2 g PO QDAY 04/15/21 [History Confirmed 04/15/21 Last Taken 04/15/21 06:00] lisinopril 2.5 mg PO QAM 04/15/21 [History Confirmed 04/15/21 Last Taken 04/15/21 08:00] omeprazole 40 mg PO QDAY 04/15/21 [History Confirmed 04/15/21 Last Taken 04/15/21 08:00] Total Restore Supplement 3 cap PO DAILY 04/16/21 [History Confirmed 04/16/21 Last Taken 04/15/21 08:00] gabapentin 300 mg PO BID #60 cap 04/16/21 [Rx Last Taken Unknown] silver sulfadiazine [SSD] 1 applic TOPICAL DAILY #50 g 04/16/21 [Rx Last Taken Unknown] trazodone 50 mg PO HSP PRN #30 tab 04/16/21 [Rx Last Taken Unknown] COURSE Hospital Course Hospital course: Mr. Fletcher is a 85 year old male with a history of extremity neuropathy, hypothyroidism, migraine headaches resents to the ED for lower extremity pain and redness that occurred after applying ice packs on both his lower extremities for neuropathy. Patient was found to have bilateral lower extremity frostbite, likely second-degree. Received some antibiotics in the ED, wound care was admitted for subsequent management. Further work-up in the ED showed the patient to be hyponatremic. Patient has been afebrile, has no leukocytosis. Procalcitonin was checked and normal. Discussed the case with condition with Dr. Pacheco at the bedside, agreed to monitor off antibiotics. Will proceed with wound care for frostbite, pain control and monitoring improvement. 04/16 Resting comfortably this morning. Ok to discharge from wound care perspective with topical silver sulfadiazine and wound care. Wound care clinic follow up at discharge. Discharged on higher dose of Gabapentin 300 mg BID, trial of Trazodone prn at bedtime. Post hospital follow up; -follow up with the wound care clinic -follow up with PCP. -evaluate effectiveness of Gabapentin 300 mg BID, could increase to higher dose for neuropathy. Physical exam Head: Atraumatic, normal inspection. Eyes: normal appearance, no scleral icterus. Neck: full ROM Respiratory: no respiratory distress. Cardiovascular: normal rate and rhythm, S1, S2. GI/Abdominal: soft, nontender, no guarding. Extremities: full range of motion, nontender. Neurological: CN II-XII intact, intact motor, intact sensation to toes in bilateral lower extremities. Psychiatric: normal mood. Skin: Bilateral lower extremities covered in clean bandage, visible toes are reddened but appear well-perfused Discharge diagnosis: Xie bite Secondary discharge diagnosis: Bilateral lower extremity neuropathy Reason for admission: Xie bite Time Spent with Patient Time attestation: Total time spent providing and/or coordinating discharge services: EXAM Constitutional Vitals: Temp Pulse Resp BP Pulse Ox 97.7 F 66 20 141/76 96 04/16/21 07:27 04/16/21 07:27 04/16/21 07:27 04/16/21 07:27 04/16/21 07:27 Discharge Data Data Completed and Pending Labs on day of discharge: Labs from last 24 hours 04/16/21 04/16/21 04/15/21 05:23 05:23 15:15 WBC 4.8 RBC 5.47 Hgb 16.0 Hct 47.7 MCV 87.2 MCH 29.3 MCHC 33.5 RDW 14.5 Plt Count 115 L MPV 10.6 H Neut % (Auto) 77.8 Lymph % (Auto) 12.5 L [place] % (Auto) 7.9 Eos % (Auto) 0.8 Baso % (Auto) 1.0 Lymph # (Auto) 0.60 L [place] # (Auto) 0.38 Eos # (Auto) 0.04 Baso # (Auto) 0.05 Absolute Neutrophils 3.74 PT INR Sodium 129 L Potassium 4.1 Chloride 94 L Carbon Dioxide 27 Anion Gap 8.0 BUN 11 Creatinine 0.9 POC Creatinine GFR Calculation 78 Glucose 91 Hemoglobin A1c Estim Average Glucose Calcium 8.5 L Total Bilirubin AST ALT Alkaline Phosphatase C-Reactive Protein Total Protein Albumin Globulin Albumin/Globulin Ratio Procalcitonin Urine Color Straw Urine Appearance Clear Urine pH 7.0 Ur Specific [place] 1.004 Urine Protein Negative Urine Glucose (UA) Negative Urine Ketones Negative Urine Occult Blood Negative Urine Nitrate Negative Urine Bilirubin Negative Urine Urobilinogen Negative Ur Leukocyte Esterase Negative Ur Culture Indicated? No 04/15/21 04/15/21 04/15/21 14:07 14:06 14:06 WBC 5.1 RBC 5.54 Hgb 16.3 Hct 47.5 MCV 85.7 MCH 29.4 MCHC 34.3 RDW 14.3 Plt Count 122 L MPV 10.6 H Neut % (Auto) 79.5 H Lymph % (Auto) 11.7 L [place] % (Auto) 6.8 Eos % (Auto) 1.2 Baso % (Auto) 0.8 Lymph # (Auto) 0.60 L [place] # (Auto) 0.35 Eos # (Auto) 0.06 Baso # (Auto) 0.04 Absolute Neutrophils 4.06 PT INR Sodium 126 L Potassium 4.1 Chloride 90 L Carbon Dioxide 25 Anion Gap 11.0 BUN 11 Creatinine 0.9 POC Creatinine 1.2 GFR Calculation 78 Glucose 120 H Hemoglobin A1c 5.2 Estim Average Glucose 103 Calcium 8.8 Total Bilirubin 0.7 AST 25 ALT 30 Alkaline Phosphatase 58 C-Reactive Protein 0.10 Total Protein 5.9 Albumin 4.2 Globulin 1.7 L Albumin/Globulin Ratio 2.5 H Procalcitonin 0.06 Urine Color Urine Appearance Urine pH Ur Specific [place] Urine Protein Urine Glucose (UA) Urine Ketones Urine Occult Blood Urine Nitrate Urine Bilirubin Urine Urobilinogen Ur Leukocyte Esterase Ur Culture Indicated? 04/15/21 14:06 WBC RBC Hgb Hct MCV MCH MCHC RDW Plt Count MPV Neut % (Auto) Lymph % (Auto) [place] % (Auto) Eos % (Auto) Baso % (Auto) Lymph # (Auto) [place] # (Auto) Eos # (Auto) Baso # (Auto) Absolute Neutrophils PT 14.7 H INR 1.1 Sodium Potassium Chloride Carbon Dioxide Anion Gap BUN Creatinine POC Creatinine GFR Calculation Glucose Hemoglobin A1c Estim Average Glucose Calcium Total Bilirubin AST ALT Alkaline Phosphatase C-Reactive Protein Total Protein Albumin Globulin Albumin/Globulin Ratio Procalcitonin Urine Color Urine Appearance Urine pH Ur Specific [place] Urine Protein Urine Glucose (UA) Urine Ketones Urine Occult Blood Urine Nitrate Urine Bilirubin Urine Urobilinogen Ur Leukocyte Esterase Ur Culture Indicated? Discharge Plan Patient/Caregiver Discharge Instructions Activity: increase activity as tolerated Prescriptions: New gabapentin 300 mg Capsule 300 mg PO BID Qty: 60 RF: 1 silver sulfadiazine [SSD] 1 % Cream 1 applic topical DAILY Qty: 50 RF: 1 trazodone 50 mg Tablet 50 mg PO HSP PRN (Reason: Insomnia) Qty: 30 RF: 0 Continued testosterone cypionate [Depo-Testosterone] 200 mg/mL oil 100 mg IM QWEEK Qty: 10 RF: 1 desonide 0.05 % ointment 1 applic TOPICAL 3XW RF: 0 sumatriptan succinate 100 mg tablet 100 mg PO PRN PRN (Reason: Headache) RF: 0 thyroid (pork) [[place] Thyroid] 60 MG tablet 60 mg PO DAILY RF: 0 colestipol 1 gram Tablet 2 g PO QDAY RF: 0 lisinopril 2.5 mg tablet 2.5 mg PO QAM RF: 0 omeprazole 40 mg Capsule,Delayed Release(Dr/Ec) 40 mg PO QDAY RF: 0 Metamucil 3.4 gram/5.4 gram Powder 1 tbsp PO BID RF: 0 Artificial Tears (cmc) 1 % Drops 2 drp OPHTHALMIC (EYE) BID PRN (Reason: Dry Eye(S)) RF: 0 Total Restore Supplement 3 cap PO DAILY RF: 0 Discontinued gabapentin 100 mg Tablet 200 mg PO QDAY RF: 0 Follow Up Plan Follow up with: Shawn Charles MD [Physician] - Robin Gutierrez MD [Primary Care Provider] - Patient Disposition: Home, Self-Care Prognosis: Fair Discharge Orders: Discharge Order (Routine); Ordered 04/16/21 Ordered By: Mando BAILON VTE Deep Vein Thrombosis/Pulmonary Embolism Present on Admission: No
== END 2021-04-16 14:00 | disposition home or self-care (01) | DRG 923 ==
LOC: ED 13:15 → MEDSUR 18:10
PROVIDERS: ADMIT Internal Medicine; ATTEND Internal Medicine

== ENCOUNTER 2024-03-07 11:16 | Inpatient (IN) ==
[2024-03-07 12:07] LABS: Basophils # (Auto) 0.02 K/mcL (0.00-0.30); Basophils % (Auto) 0.2 % (0.0-2.0); Eosinophils # (Auto) 0.04 K/mcL (0.00-0.70); Eosinophils % (Auto) 0.5 % (0.0-7.0); Hemoglobin 15.1 g/dL (13.7-17.5); Lymphocytes # (Auto) 0.54 K/mcL (1.50-4.80); Lymphocytes % (Auto) 6.1 % (15.5-49.0); Mean Cell Volume 95.4 fL (80.0-100.0); Mean Corpuscular HGB Conc 34.3 g/dL (31.0-36.0); Monocytes # (Auto) 0.67 K/mcL (0.10-0.90); Monocytes % (Auto) 7.5 % (1.0-12.0); Neutrophils % (Auto) 84.7 % (38.0-78.0); Platelet Count 166 K/mcL (140-440); RBC 4.61 M/mcL (4.63-6.08); Red Cell Distribution Width 14.6 % (11.5-14.5); WBC 8.9 K/mcL (4.5-11.0)
[2024-03-07 12:24] LABS: ALT/SGPT 29 U/L (<40); AST/SGOT 33 U/L (<40); Albumin 3.6 gm/dL (3.2-5.2); Albumin/Globulin Ratio 1.7 (1.0-2.3); Alkaline Phosphatase 100 U/L (39-117); Blood Urea Nitrogen 17 mg/dL (8-23); Calcium 8.6 mg/dL (8.6-10.4); Carbon Dioxide 26 mmol/L (22-30); Chloride 92 mmol/L (96-108); Globulin 2.1 gm/dL (2.2-3.7); Glomerular Filtration Rate 77; Glucose 108 mg/dL (70-105)
[2024-03-07 12:58] LABS: Appearance,Urine Slightly Cloudy (Clear); Bacteria,Urine Few /hpf (0); Bilirubin,Urine Negative (Negative); Color,Urine Yellow; Culture Indicated,Urine Yes; Glucose,Urine (UA) Negative (Negative); Ketones,Urine Negative (Negative); Leukocyte Esterase,Urine Small /uL (Negative); Nitrate,Urine Positive (Negative); Protein,Urine Negative (Negative); Specific Gravity,Urine 1.015 (1.000-1.035); Urine Blood Trace-intact ery/mcL (Negative); Urine RBC 2 /hpf (0-3); Urine Squamous Epithelial Cell 0 /hpf (0-4); Urine WBC 6 /hpf (0-4); Urobilinogen,Urine Normal
[2024-03-07] MEDS: cefTRIAXone 1 GM VIAL IV ONE (13:59)
[2024-03-07] MEDS: FUROSEMIDE 40 MG/4 ML VIAL IV SCH (17:04)
[2024-03-07] MEDS ORDERED: TESTOSTERONE CYPIONATE 200 MG/ML IM SCH (17:50)
[2024-03-07] MEDS ORDERED: COLESTIPOLL 1 GM TABLET PO PRN (17:50)
[2024-03-07] MEDS ORDERED: CARBOXYMETHYLCELLULOSE SODIUM 1 EACH DROPER.GEL OU PRN (17:53)
[2024-03-07] MEDS ORDERED: IODINE TOPICAL PRN (17:56)
[2024-03-07] MEDS ORDERED: ISOPROPYL ALCOHOL TOPICAL PRN (17:56)
[2024-03-07] MEDS: DOCUSATE SODIUM 100 MG CAPSULE PO SCH (20:35)
[2024-03-07] MEDS: LORazepam 0.5 MG TABLET PO PRN (20:35)
[2024-03-07] MEDS: PREGABALIN 75 MG CAPSULE PO SCH (20:35)
[2024-03-07] MEDS: HEPARIN 5,000 UNIT/ML VIAL SQ SCH (20:35)
[2024-03-07] MEDS: CARVEDILOL 6.25 MG TABLET PO SCH (20:35)
[2024-03-07 21:45] LABS: Blood Urea Nitrogen 16 mg/dL (8-23); Calcium 8.6 mg/dL (8.6-10.4); Carbon Dioxide 30 mmol/L (22-30); Chloride 92 mmol/L (96-108); Glomerular Filtration Rate 77; Glucose 137 mg/dL (70-105)
[2024-03-07] MEDS: 0.9 % SODIUM CHLORIDE 10 ML SYRINGE IV SCH (22:43)
[2024-03-07] MEDS: IBUPROFEN 800 MG TABLET PO ONE (23:38)
[2024-03-08] MEDS: ACETAMINOPHEN 325 MG TABLET PO PRN (05:05)
[2024-03-08 06:16] LABS: Basophils # (Auto) 0.03 K/mcL (0.00-0.30); Basophils % (Auto) 0.6 % (0.0-2.0); Eosinophils # (Auto) 0.03 K/mcL (0.00-0.70); Eosinophils % (Auto) 0.6 % (0.0-7.0); Hematocrit 41.6 % (40.1-51.0); Hemoglobin 14.1 g/dL (13.7-17.5); Lymphocytes # (Auto) 0.47 K/mcL (1.50-4.80); Lymphocytes % (Auto) 8.8 % (15.5-49.0); Mean Cell Volume 96.7 fL (80.0-100.0); Mean Corpuscular HGB Conc 33.9 g/dL (31.0-36.0); Mean Platelet Volume 9.6 fL (8.8-12.5); Monocytes # (Auto) 0.41 K/mcL (0.10-0.90); Monocytes % (Auto) 7.7 % (1.0-12.0); Neutrophils % (Auto) 81.5 % (38.0-78.0); Platelet Count 159 K/mcL (140-440); Red Cell Distribution Width 14.8 % (11.5-14.5); WBC 5.3 K/mcL (4.5-11.0)
[2024-03-08 06:32] LABS: ALT/SGPT 24 U/L (<40); AST/SGOT 25 U/L (<40); Albumin 3.2 gm/dL (3.2-5.2); Albumin/Globulin Ratio 1.8 (1.0-2.3); Alkaline Phosphatase 87 U/L (39-117); Bilirubin,Total 0.9 mg/dL (0.1-1.0); Blood Urea Nitrogen 15 mg/dL (8-23); Calcium 8.5 mg/dL (8.6-10.4); Carbon Dioxide 30 mmol/L (22-30); Chloride 89 mmol/L (96-108); Globulin 1.8 gm/dL (2.2-3.7); Glomerular Filtration Rate 77; Glucose 101 mg/dL (70-105)
[2024-03-08] MEDS ORDERED: FUROSEMIDE 40 MG/4 ML VIAL IV SCH (09:00)
[2024-03-08] MEDS: LISINOPRIL 5 MG TABLET PO SCH (09:13)
[2024-03-08] MEDS: OMEPRAZOLE 20 MG CAPSULE PO SCH (09:14)
[2024-03-08] MEDS: amLODIPine 5 MG TABLET PO SCH (09:14)
[2024-03-08] MEDS: THYROID, PORK 60 MG TABLET PO SCH (09:15)
[2024-03-08] MEDS: FUROSEMIDE 40 MG/4 ML VIAL IV SCH (10:04)
[2024-03-08] MEDS: cefTRIAXone 1 GM VIAL IV SCH (10:05)
[2024-03-08] MEDS: LIDOCAINE 2% URO-JET 10 ML JEL.PF.APP UR ONE (18:18)
[2024-03-08] MEDS ORDERED: MELATONIN 3 MG TABLET PO SCH (21:27)
[2024-03-08] MEDS: MELATONIN 3 MG TABLET PO PRN (21:38)
[2024-03-08] MEDS: LORazepam 0.5 MG TABLET PO PRN (21:39)
[2024-03-08] MEDS: MELATONIN 3 MG TABLET PO ONE (21:41)
[2024-03-09 06:33] LABS: Basophils # (Auto) 0.03 K/mcL (0.00-0.30); Basophils % (Auto) 0.7 % (0.0-2.0); Eosinophils # (Auto) 0.09 K/mcL (0.00-0.70); Eosinophils % (Auto) 2.2 % (0.0-7.0); Hematocrit 43.4 % (40.1-51.0); Hemoglobin 14.8 g/dL (13.7-17.5); Lymphocytes # (Auto) 0.54 K/mcL (1.50-4.80); Lymphocytes % (Auto) 12.9 % (15.5-49.0); Mean Cell Volume 95.8 fL (80.0-100.0); Mean Corpuscular HGB Conc 34.1 g/dL (31.0-36.0); Mean Platelet Volume 9.7 fL (8.8-12.5); Monocytes # (Auto) 0.35 K/mcL (0.10-0.90); Monocytes % (Auto) 8.4 % (1.0-12.0); Neutrophils % (Auto) 74.6 % (38.0-78.0); Platelet Count 162 K/mcL (140-440); RBC 4.53 M/mcL (4.63-6.08); Red Cell Distribution Width 14.6 % (11.5-14.5); WBC 4.2 K/mcL (4.5-11.0)
[2024-03-09 07:21] LABS: ALT/SGPT 22 U/L (<40); AST/SGOT 23 U/L (<40); Albumin 3.2 gm/dL (3.2-5.2); Albumin/Globulin Ratio 1.9 (1.0-2.3); Alkaline Phosphatase 82 U/L (39-117); Bilirubin,Total 0.7 mg/dL (0.1-1.0); Blood Urea Nitrogen 15 mg/dL (8-23); Calcium 8.4 mg/dL (8.6-10.4); Carbon Dioxide 28 mmol/L (22-30); Chloride 88 mmol/L (96-108); Globulin 1.7 gm/dL (2.2-3.7); Glomerular Filtration Rate 77; Glucose 121 mg/dL (70-105)
[2024-03-09] MEDS: POTASSIUM CHLORIDE 20 MEQ TABLET PO ONE (07:41)
[2024-03-09] MEDS: POLYETHYLENE GLYCOL 3350 17 GM PACKET PO PRN (12:34)
[2024-03-09 15:15] LABS: Blood Urea Nitrogen 13 mg/dL (8-23); Calcium 8.6 mg/dL (8.6-10.4); Carbon Dioxide 30 mmol/L (22-30); Chloride 87 mmol/L (96-108); Glomerular Filtration Rate 77; Glucose 107 mg/dL (70-105)
[2024-03-09] MEDS: SODIUM CHLORIDE 1 GM TABLET PO ONE ×2 (15:55→21:04)
[2024-03-09] MEDS: ONDANSETRON 4 MG/2 ML VIAL IV PRN (16:12)
[2024-03-09] MEDS ORDERED: MELATONIN 3 MG TABLET PO SCH (21:00)
[2024-03-10 07:32] LABS: ALT/SGPT 27 U/L (<40); AST/SGOT 29 U/L (<40); Albumin 3.2 gm/dL (3.2-5.2); Albumin/Globulin Ratio 1.9 (1.0-2.3); Alkaline Phosphatase 81 U/L (39-117); Bilirubin,Direct 0.3 mg/dL (<0.3); Bilirubin,Total 0.8 mg/dL (0.1-1.0); Blood Urea Nitrogen 13 mg/dL (8-23); Calcium 8.4 mg/dL (8.6-10.4); Carbon Dioxide 29 mmol/L (22-30); Chloride 89 mmol/L (96-108); Globulin 1.7 gm/dL (2.2-3.7); Glomerular Filtration Rate 80; Glucose 94 mg/dL (70-105); Lactate Dehydrogenase 143 U/L (135-225); Triglycerides 91 mg/dL (<150); Uric Acid 4.6 mg/dL (2.5-8.0)
[2024-03-10] MEDS: POLYETHYLENE GLYCOL 3350 17 GM PACKET PO ONE (12:38)
[2024-03-11 06:18] LABS: Basophils # (Auto) 0.04 K/mcL (0.00-0.30); Basophils % (Auto) 0.8 % (0.0-2.0); Eosinophils # (Auto) 0.07 K/mcL (0.00-0.70); Eosinophils % (Auto) 1.3 % (0.0-7.0); Hematocrit 42.4 % (40.1-51.0); Hemoglobin 14.4 g/dL (13.7-17.5); Lymphocytes # (Auto) 0.56 K/mcL (1.50-4.80); Lymphocytes % (Auto) 10.6 % (15.5-49.0); Mean Cell Volume 95.1 fL (80.0-100.0); Mean Platelet Volume 9.3 fL (8.8-12.5); Monocytes # (Auto) 0.39 K/mcL (0.10-0.90); Monocytes % (Auto) 7.4 % (1.0-12.0); Neutrophils % (Auto) 78.8 % (38.0-78.0); Platelet Count 160 K/mcL (140-440); RBC 4.46 M/mcL (4.63-6.08); Red Cell Distribution Width 14.3 % (11.5-14.5); WBC 5.3 K/mcL (4.5-11.0)
[2024-03-11 06:31] LABS: ALT/SGPT 29 U/L (<40); AST/SGOT 29 U/L (<40); Albumin/Globulin Ratio 1.9 (1.0-2.3); Alkaline Phosphatase 75 U/L (39-117); Bilirubin,Direct 0.2 mg/dL (<0.3); Bilirubin,Total 0.6 mg/dL (0.1-1.0); Blood Urea Nitrogen 14 mg/dL (8-23); Calcium 8.2 mg/dL (8.6-10.4); Carbon Dioxide 28 mmol/L (22-30); Chloride 86 mmol/L (96-108); Globulin 1.6 gm/dL (2.2-3.7); Glomerular Filtration Rate 80; Glucose 126 mg/dL (70-105); Lactate Dehydrogenase 150 U/L (135-225); Phosphorous 2.8 mg/dL (2.5-4.5); Triglycerides 90 mg/dL (<150); Uric Acid 4.7 mg/dL (2.5-8.0)
[2024-03-11] MEDS: ALBUMIN HUMAN 12.5 GM/50 ML VIAL IV SCH (08:58)
[2024-03-11] MEDS: MAGNESIUM HYDROXIDE 30 ML ORAL.SUSP PO PRN (09:32)
[2024-03-11] MEDS: FUROSEMIDE 40 MG/4 ML VIAL IV SCH (10:00)
[2024-03-11] MEDS: SODIUM CHLORIDE 3 % 100 ML IV ONE (10:41)
[2024-03-11] MEDS: SENNOSIDES 1 TABLET PO SCH (10:53)
[2024-03-11] MEDS: SUMAtriptan SUCCINATE 50 MG TABLET PO PRN (13:44)
[2024-03-11] MEDS ORDERED: HYDROcodone/APAP 5/325MG TABLET PO PRN (15:18)
[2024-03-11] MEDS: SODIUM CHLORIDE 3 % 200 ML IV ONE (15:24)
[2024-03-11] MEDS: SODIUM CHLORIDE 3 % 300 ML IV ONE (19:29)
[2024-03-12 07:10] LABS: ALT/SGPT 41 U/L (<40); AST/SGOT 41 U/L (<40); Albumin 3.2 gm/dL (3.2-5.2); Alkaline Phosphatase 75 U/L (39-117); Bilirubin,Direct 0.2 mg/dL (<0.3); Bilirubin,Total 0.5 mg/dL (0.1-1.0); Blood Urea Nitrogen 13 mg/dL (8-23); Calcium 8.3 mg/dL (8.6-10.4); Carbon Dioxide 28 mmol/L (22-30); Chloride 92 mmol/L (96-108); Globulin 1.6 gm/dL (2.2-3.7); Glomerular Filtration Rate 77; Glucose 96 mg/dL (70-105); Lactate Dehydrogenase 152 U/L (135-225); Phosphorous 2.8 mg/dL (2.5-4.5); Triglycerides 60 mg/dL (<150); Uric Acid 4.9 mg/dL (2.5-8.0)
[2024-03-12] MEDS: ALBUMIN HUMAN 12.5 GM/50 ML VIAL IV SCH (09:43)
[2024-03-12] MEDS: traMADol 50 MG TABLET PO PRN (09:46)
[2024-03-12] MEDS: SODIUM CHLORIDE 1 GM TABLET PO SCH (15:16)
[2024-03-13 06:37] LABS: Blood Urea Nitrogen 15 mg/dL (8-23); Calcium 8.2 mg/dL (8.6-10.4); Carbon Dioxide 29 mmol/L (22-30); Chloride 91 mmol/L (96-108); Glomerular Filtration Rate 80; Glucose 95 mg/dL (70-105)
[2024-03-13] MEDS: SODIUM CHLORIDE 1 GM TABLET PO SCH (08:07)
== END 2024-03-13 12:18 | DRG 291 ==
LOC: ED 11:16 → ICU 17:31 → MEDSUR 03-09 17:55
PROVIDERS: ADMIT Student in an Organized Health Care Education/Training Program; ATTEND Internal Medicine